=== PATIENT | male | born 1995 | race Caucasian/White ===

== ENCOUNTER 2018-06-15 10:52 | Emergency (ER) | payer MEDICAID ==
[~2018-06-15] VITALS: Ht 174 cm; Wt 78.4 kg
[2018-06-15] MEDS ORDERED: IBUP-2354 PO (10:53)
[2018-06-15] MEDS ORDERED: KETOROLAC TROMETHAMINE 10 MG TABLET PO ONE (12:30)
[2018-06-15] MEDS ORDERED: METHOCARBAMOL 500 MG TABLET PO ONE (12:30)
[2018-06-15 13:19] VITALS: BP 121/67
== END 2018-06-15 13:21 | disposition home or self-care (01) ==
LOC: EMS 10:52
DX: S13.4XXA Sprain of ligaments of cervical spine, initial encounter (principal); S33.5XXA Sprain of ligaments of lumbar spine, initial encounter; S40.012A Contusion of left shoulder, initial encounter; S80.02XA Contusion of left knee, initial encounter; V49.9XXA Car occupant (driver) (passenger) injured in unspecified traffic accident, initial encounter; Y93.89 Activity, other specified; Y92.89 Other specified places as the place of occurrence of the external cause; Y99.8 Other external cause status